=== PATIENT | male | born 1955 | race African-American/Black ===

== ENCOUNTER 2016-08-01 01:05 | Emergency (ER) | payer MEDICAID ==
[~2016-08-01] VITALS: Ht 172.7 cm; Wt 95.0 kg
[~2016-08-01 01:05] MED LIST: HALDOL; SEROQUEL; [UNRECOGNIZED DRUG - OTHER]
[2016-08-01] MEDS ORDERED: SODIUM CHLORIDE 0.9% 1,000 ML IV ONE (06:15)
[2016-08-01] MEDS ORDERED: FAMOTIDINE 20MG/2ML VIAL IV ONE (06:15)
[2016-08-01] MEDS ORDERED: ONDANSETRON HCL 4MG/2ML VIAL IM ONE (06:15)
[2016-08-01 06:38] LABS: CHLORIDE 105 mEq/L (98-107)
[2016-08-01 06:39] LABS: HEMATOCRIT. 41.8 % (42.0-52.0); HEMOGLOBIN. 13.6 g/dL (14.0-18.0); INDEX HEMOLYSI 1 (1-3); INDEX ICTERIC 1 (1-4); INDEX LIPEMIC 1 (1-3); MEAN CORPUSCULAR HEMOGLOBIN 28.1 pg (28.0-32.0); MEAN CORPUSCULAR HGB CONC 32.5 g/dL (31.0-37.0); MEAN CORPUSCULAR VOLUME 86.6 fL (80.0-94.0); PLATELET 162 x1000/uL (130-400); RED BLOOD CELL COUNT 4.83 mill/uL (4.7-6.1); RED CELL DISTRIBUTION WIDTH 14.8 % (11.6-14.6); WHITE BLOOD COUNT 8.5 x1000/uL (4.5-11.0)
[2016-08-01 06:47] LABS: ALANINE AMINOTRANSFERASE 29 IU/L (13-61); ALBUMIN 3.4 g/dL (3.4-5.0); ANION GAP 15; CALCIUM 8.4 mg/dL (8.5-10.1); CARBON DIOXIDE 26 mEq/L (21-32); LIPASE 156 IU/L (73-393); UREA NITROGEN BLOOD 9 mg/dL (7-21); eGFR > 60 mL/min (>60)
[2016-08-01 07:13] LABS: ACETAMINOPHEN < 2 ug/mL (10-30); ETHANOL BLOOD 15 mg/dL
[2016-08-01 07:14] LABS: PLATELET ESTIMATE NORMAL
[2016-08-01 09:52] LABS: CLARITY URINE CLEAR (CLEAR); COLOR URINE YELLOW (YELLOW); GLUCOSE URINE NEGATIVE (NEGATIVE); KETONES URINE 1+ (NEGATIVE); LEUKOCYTE ESTERASE URINE NEGATIVE (NEGATIVE); NITRITE URINE NEGATIVE (NEGATIVE); OCCULT BLOOD URINE NEGATIVE (NEGATIVE); PROTEIN URINE TRACE (NEGATIVE); SPECIFIC GRAVITY URINE 1.023 (1.005-1.030)
[2016-08-01 09:54] LABS: BACTERIA URINE NONE SEEN; CALCIUM PHOSPHATE CRYSTALS UR NONE SEEN /lpf; RBC URINE NONE SEEN /hpf (0-2); SQUAMOUS EPITHELIAL CELL URINE NONE SEEN /lpf (RARE/1+); WAXY CASTS URINE NONE SEEN /lpf; WBC URINE NONE SEEN /hpf (0-2); YEAST URINE NONE SEEN
[2016-08-01 10:12] LABS: *AMPHETAMINES SCREEN URINE NEGATIVE (NEGATIVE); *BARBITURATES SCREEN URINE NEGATIVE (NEGATIVE); *BENZODIAZEPINES SCREEN URINE NEGATIVE (NEGATIVE); *COCAINE SCREEN URINE NEGATIVE (NEGATIVE); CANNABINOID URINE SCREEN NEGATIVE (NEGATIVE); ECSTASY MDMA SCREEN URINE NEGATIVE (NEGATIVE); METHADONE URINE SCREEN NEGATIVE (NEGATIVE); OPIATES URINE SCREEN NEGATIVE (NEGATIVE); PHENCYCLIDINE URINE SCREEN NEGATIVE (NEGATIVE)
[2016-08-02] MEDS ORDERED: QUETIAPINE FUMARATE 100MG TABLET PO SCH (00:15)
[2016-08-02 10:12] VITALS: BP 144/91
== END 2016-08-02 10:18 ==
LOC: ER 01:11
DX: F20.0 Paranoid schizophrenia (principal); R03.0 Elevated blood-pressure reading, without diagnosis of hypertension; Z59.0 Homelessness; Z88.8 Allergy status to other drugs, medicaments and biological substances; F17.210 Nicotine dependence, cigarettes, uncomplicated
CPT/HCPCS: 36415; 80053; 80302; 80305; 80329; 81001; 83690; 85007; 85027; 99284; G0482; J2405; J3490; J7030; Z7610; 80307

== ENCOUNTER 2016-08-15 16:32 | Emergency (ER) | payer MEDICAID ==
[~2016-08-15] VITALS: Ht 182.9 cm; Wt 110.0 kg
[2016-08-15 16:34] VITALS: BP 123/73
== END 2016-08-15 17:18 | disposition left against medical advice (07) ==
LOC: ER 16:33
DX: R53.1 Weakness (principal); E11.9 Type 2 diabetes mellitus without complications; I10 Essential (primary) hypertension; I25.2 Old myocardial infarction; F20.9 Schizophrenia, unspecified; F17.210 Nicotine dependence, cigarettes, uncomplicated; Z88.8 Allergy status to other drugs, medicaments and biological substances
CPT/HCPCS: 99283

== ENCOUNTER 2016-08-16 09:37 | Emergency (ER) | payer MEDICAID ==
[~2016-08-16] VITALS: Ht 182.9 cm; Wt 85.0 kg
[2016-08-16 11:30] LABS: DIFFERENTIAL COMMENT 1; HEMATOCRIT. 39.6 % (42.0-52.0); HEMOGLOBIN. 12.9 g/dL (14.0-18.0); MEAN CORPUSCULAR HEMOGLOBIN 28.3 pg (28.0-32.0); MEAN CORPUSCULAR HGB CONC 32.5 g/dL (31.0-37.0); MEAN CORPUSCULAR VOLUME 87.3 fL (80.0-94.0); MEAN PLATELET VOLUME 7.9 fl (7.4-10.4); PLATELET 361 x1000/uL (130-400); RED BLOOD CELL COUNT 4.54 mill/uL (4.7-6.1); RED CELL DISTRIBUTION WIDTH 14.7 % (11.6-14.6); WHITE BLOOD COUNT 8.1 x1000/uL (4.5-11.0)
[2016-08-16 11:35] LABS: CHLORIDE 105 mEq/L (98-107)
[2016-08-16 11:36] LABS: INDEX HEMOLYSI 1 (1-3); INDEX ICTERIC 1 (1-4); INDEX LIPEMIC 1 (1-3)
[2016-08-16 11:43] LABS: ANION GAP 12; CALCIUM 8.6 mg/dL (8.5-10.1); CARBON DIOXIDE 26 mEq/L (21-32); ETHANOL BLOOD < 10 mg/dL; UREA NITROGEN BLOOD 13 mg/dL (7-21)
[2016-08-16 11:45] LABS: ACETAMINOPHEN < 2 ug/mL (10-30); eGFR > 60 mL/min (>60)
[2016-08-16 12:11] VITALS: BP 122/78
[2016-08-16 12:20] LABS: PLATELET ESTIMATE NORMAL
== END 2016-08-16 14:38 | disposition home or self-care (01) ==
LOC: ER 09:39
DX: F20.9 Schizophrenia, unspecified (principal); F10.129 Alcohol abuse with intoxication, unspecified; E11.9 Type 2 diabetes mellitus without complications; I25.2 Old myocardial infarction; I10 Essential (primary) hypertension; R44.0 Auditory hallucinations; R45.851 Suicidal ideations; F31.9 Bipolar disorder, unspecified; Z88.8 Allergy status to other drugs, medicaments and biological substances; Y90.0 Blood alcohol level of less than 20 mg/100 ml
CPT/HCPCS: 36415; 80048; 80307; 80329; 85025; 99284; G0482

== ENCOUNTER 2016-08-19 02:57 | Emergency (ER) | payer MEDICAID ==
[~2016-08-19] VITALS: Ht 177.8 cm; Wt 82.0 kg
[2016-08-19 03:13] VITALS: BP 111/68
== END 2016-08-19 04:35 | disposition left against medical advice (07) ==
LOC: ER 02:58
DX: R44.0 Auditory hallucinations (principal); F10.20 Alcohol dependence, uncomplicated; Z79.899 Other long term (current) drug therapy; Z82.49 Family history of ischemic heart disease and other diseases of the circulatory system
CPT/HCPCS: 99283

== ENCOUNTER 2016-08-19 05:12 | Emergency (ER) | payer MEDICAID ==
[~2016-08-19] VITALS: Ht 182.9 cm; Wt 83.0 kg
[2016-08-19] MEDS ORDERED: IBUPROFEN 600MG TABLET PO ONE (09:15)
[2016-08-19 09:16] VITALS: BP 121/61
== END 2016-08-19 09:51 | disposition home or self-care (01) ==
LOC: ER 07:22
DX: S80.12XA Contusion of left lower leg, initial encounter (principal); E11.9 Type 2 diabetes mellitus without complications; I10 Essential (primary) hypertension; I25.2 Old myocardial infarction; F20.9 Schizophrenia, unspecified; F17.200 Nicotine dependence, unspecified, uncomplicated; Z88.8 Allergy status to other drugs, medicaments and biological substances; X58.XXXA Exposure to other specified factors, initial encounter; Y93.89 Activity, other specified; Y99.8 Other external cause status; Y92.009 Unspecified place in unspecified non-institutional (private) residence as the place of occurrence of the external cause
CPT/HCPCS: 99282

== ENCOUNTER 2017-04-27 11:45 | Emergency (ER) | payer MEDICAID ==
[~2017-04-27] VITALS: Ht 175.3 cm; Wt 95.0 kg
[2017-04-27] MEDS ORDERED: BENZ1TAB7 GT (11:53)
[2017-04-27] MEDS ORDERED: DIPH25CA83 PO (11:53)
[2017-04-27] MEDS: ACETAMINOPHEN 500MG TABLET PO NR (16:41)
[2017-04-27] MEDS: QUETIAPINE FUMARATE 100MG TABLET PO NR (16:41)
[2017-04-27] MEDS: HALOPERIDOL 2MG TABLET PO NR (16:51)
[2017-04-27] MEDS: BACITRACIN ZINC OINT UDPKT TOP ONE (21:04)
[2017-04-27 23:30] VITALS: BP 122/85
== END 2017-04-27 23:35 | disposition home or self-care (01) ==
LOC: ER 12:41
DX: S02.2XXA Fracture of nasal bones, initial encounter for closed fracture (principal); F20.9 Schizophrenia, unspecified; W01.0XXA Fall on same level from slipping, tripping and stumbling without subsequent striking against object, initial encounter
CPT/HCPCS: 70450; 70486; 71010; 93005; 99284

== ENCOUNTER 2018-08-18 20:34 | Emergency (ER) | payer MEDICAID, OTHER ==
[~2018-08-18 20:34] MED LIST changes: +BENZ1TAB7 GT; +DIPH25CA83 PO
== END 2018-08-18 23:30 | disposition left against medical advice (07) ==
LOC: ER 20:34
DX: Z53.21 Procedure and treatment not carried out due to patient leaving prior to being seen by health care provider (principal)

== ENCOUNTER 2021-04-17 12:06 | Emergency (ER) | payer MEDICAID ==
[~2021-04-17] VITALS: Ht 170.2 cm; Wt 90.0 kg
[2021-04-17 12:12] VITALS: BP 146/82
== END 2021-04-17 12:49 | disposition left against medical advice (07) ==
LOC: ER 12:06
DX: F10.129 Alcohol abuse with intoxication, unspecified (principal); Z98.890 Other specified postprocedural states; Z79.899 Other long term (current) drug therapy; Z88.8 Allergy status to other drugs, medicaments and biological substances; Y90.9 Presence of alcohol in blood, level not specified
CPT/HCPCS: 99283

== ENCOUNTER 2024-01-08 11:13 | Emergency (ER) | payer MEDICARE, MEDICAID ==
[~2024-01-08] VITALS: Ht 185.4 cm; Wt 95.0 kg
[~2024-01-08 11:13] MED LIST changes: -BENZ1TAB7 GT; +BENZ1TAB79 GT; +DULO20CA18 PO; +FINA5TAB11 PO; +QUET200T30 PO
[2024-01-08 11:16] VITALS: BP 163/98; PULSE 102; RESP 16; TEMP 98.1; O2SAT 97
[2024-01-08] MEDS ORDERED: LEVETIRACETAM 500MG TABLET PO ONE (12:30)
[2024-01-08 12:40] LABS: BASOPHILS % 0.7 % (0.0-2.0); EOSINOPHILS % 2.6 % (0.0-5.0); HEMATOCRIT. 42.2 % (42.0-52.0); HEMOGLOBIN. 13.7 g/dL (14.0-18.0); LYMPHOCYTES % 17.7 % (20.0-50.0); MEAN CORPUSCULAR HEMOGLOBIN 30.2 pg (28.0-32.0); MEAN CORPUSCULAR HGB CONC 32.4 g/dL (31.0-37.0); MEAN PLATELET VOLUME 7.7 fl (7.4-10.4); MONOCYTES % 10.3 % (2.0-8.0); NEUTROPHILS % 68.7 % (40.0-76.0); PLATELET 142 x1000/uL (130-400); RED BLOOD CELL COUNT 4.54 mill/uL (4.7-6.1); WHITE BLOOD COUNT 4.1 x1000/uL (4.5-11.0)
[2024-01-08 12:47] LABS: CHLORIDE 109 mEq/L (98-107); POTASSIUM 4.6 mEq/L (3.5-5.1); SODIUM 139 mEq/L (136-145)
[2024-01-08 12:48] LABS: CALCIUM 9.1 mg/dL (8.7-10.4); CARBON DIOXIDE 27 mEq/L (21-32)
[2024-01-08 12:53] LABS: GLUCOSE 95 mg/dL (70-105); UREA NITROGEN BLOOD 8 mg/dL (9-23)
== END 2024-01-08 14:42 | disposition left against medical advice (07) ==
LOC: ER 11:13
DX: R56.9 Unspecified convulsions (principal); Z88.8 Allergy status to other drugs, medicaments and biological substances; Z79.899 Other long term (current) drug therapy
CPT/HCPCS: 36415; 80048; 85025; 93005; 99284